=== PATIENT | male | born 1985 | race African-American/Black ===

== ENCOUNTER 2022-03-01 10:26 | Emergency (ER) | payer OTHER, SELFPAY ==
--- NOTE | ~2022-03-01 | XR_ITS ---
EXAMINATION: XR tibia fibula LT 2V INDICATION: Left ankle pain TECHNIQUE: Two views of the left tibia and fibula are obtained on three radiographs. COMPARISON: None available FINDINGS: Again seen is an acute, traumatic, closed, oblique fracture of the posterior aspect of the distal fibula extending below the level of the tibial plafond. No additional fracture is identified. Bone alignment at the knee is normal. There is lateral soft tissue swelling of ankle. IMPRESSION: 1. Oblique fracture of the posterior aspect of the distal fibula extending below the level of the tib ial plafond. No additional acute osseous abnormality identified. Reviewed, dictated and finalized at location A. IMPRESSION: 1. Oblique fracture of the posterior aspect of the distal fibula extending belo w the level of the tibial plafond. No additional acute osseous abnormality iden tified.
--- NOTE | ~2022-03-01 | XR_ITS ---
EXAMINATION: XR ankle LT min 3V DATE: 03/01/2022 10:55 INDICATION: Left ankle pain, initial encounter TECHNIQUE: Anteroposterior, lateral, mortise, and additional oblique view of the ankle were obtained. COMPARISON: None. FINDINGS: There is an acute, traumatic, closed, oblique fracture in the posterior aspect of the dista l fibula extending below the level of the tibial plafond. No additional fracture is identified. The d istal fracture fragment is posteriorly displaced approximately 4 mm. There is soft tissue swelling of ankle. IMPRESSION: 1. Acute oblique fracture of the posterior aspect of the distal fibula extending below the level of t he tibial plafond. Reviewed, dictated and finalized at location A. IMPRESSION: 1. Acute oblique fracture of the posterior aspect of the distal fibula extendin g below the level of the tibial plafond.
[2022-03-01 10:28] VITALS: BP 147/75; PULSE 103; RESP 14; TEMP 36.4; O2SAT 98
--- NOTE | 2022-03-01 11:26 | ED.LOWEXIN ---
HPI - Extremity Injury (Lower) General Chief Complaint: Extremity Injury, Lower Stated Complaint: left ankle injury Time Seen by Provider: 03/01/22 11:09 History of Present Illness HPI Narrative: Patient is a 37-year-old male here for evaluation of left ankle/lower leg pain and swelling. Patient states that he was playing with his nephew, when he accidentally tripped and fell, landing with his foot in inversion. He denies head injury or loss of consciousness in the accident. He has taken a few steps since the accident but notes it has been painful. Notes that his foot was out of place initially, he pulled out himself to bring it back into anatomic position. Denies any numbness, tingling. Has not taken any pain medicine yet. Related Data Allergies Allergy/AdvReac Type Severity Reaction Status Date / Time No Known Allergies Allergy Verified 03/01/22 10:27 Review of Systems Review of Systems: Gen: Denies fevers or chills Eyes: Denies eye pain or visual change ENT: Denies congestion Respiratory: Denies shortness of breath or cough CV: Denies chest pain or palpitations GI: Denies abdominal pain nausea, emesis or diarrhea : denies burning, urgency, frequency or hematuria Musculoskeletal: Denies back pain or muscle pain Neuro: Denies numbness, tingling, weakness or focal weakness Skin: Denies rash Except as documented, all other systems reviewed and negative Exam Narrative: Gen: Alert, oriented, no acute distress Eyes: EOMI, no icterus Pulm: Respirations even and unlabored, symmetric thorax expansion, no audible stridor or visible cyanosis CV: 2+ DP and PT pulses. GI: No distension, no voluntary/involuntary guarding Neuro: AOx4, moves all extremities without apparent difficulty or weakness, follows commands MSK: Patient has swelling and bruising over lateral aspect of left foot. He is tender to palpation over the distal and mid fibula. He is able to wiggle his toes. Sensation intact distal to area of pain. Compartments are soft. Skin: No jaundice, no visible bruising, rashes, lesions or wounds on exposed skin Psych: Normal mood/affect, insight/judgement good, adequate fund of knowledge, recent/remote memory intact Course Vital Signs Vital signs: Vital Signs Temperature 97.5 F L 03/01/22 10:28 Pulse Rate 103 H 03/01/22 10:28 Respiratory Rate 14 03/01/22 10:28 Blood Pressure 147/75 H 03/01/22 10:28 Pulse Oximetry 98 03/01/22 10:28 Oxygen Delivery Room Air 03/01/22 10:28 Temperature 97.5 F L 03/01/22 10:28 Pulse Rate 82 03/01/22 13:49 Respiratory Rate 18 03/01/22 13:49 Blood Pressure 133/75 03/01/22 13:49 Pulse Oximetry 100 03/01/22 13:49 Oxygen Delivery Room Air 03/01/22 10:28 MDM - Extremity Injury (Lower) MDM Narrative Medical decision making narrative: 37-year-old male here for evaluation of left foot pain after falling today. On exam, he is tender around his distal fibula with bruising. Compartments are soft. He has evidence of an oblique distal fibular fracture on x-ray. He is neurovascularly intact distally. He was put in a posterior short leg splint and told to follow up with orthopedics this following week. Was given return precautions and he voiced understanding. Discharge Plan Discharge Clinical Impression: Fracture of distal end of fibula Patient Disposition: Home, Self-Care Condition: Stable Instructions: Antibiotic Form, Ankle Fracture (ED), Splint Care (ED) Additional Instructions: You are found to have a fracture of your fibula bone. You are placed in a splint that will immobilize the fracture. Please wear the splint until you can follow-up with an orthopedist specialist and use the crutches. Take the pain medicine as prescribed. Return to the emergency department if you develop a fever or chills, if your pain is unmanageable. Prescriptions: New hydrocodone-acetaminophen 5-325 mg tablet 1 tablet PO Q6H PRN (Reason: pain) Qty: 10 0RF
[2022-03-01] MEDS: HYDROcodone/acetaminophen (*CRX) 5-325 MG TABLET 1 TAB PO (11:28)
[2022-03-01 13:49] VITALS: BP 133/75; PULSE 82; RESP 18; O2SAT 100
== END 2022-03-01 13:51 | disposition home or self-care (01) ==
PROVIDERS: Emergency Provider Emergency Medicine
DX: S82.832A Other fracture of upper and lower end of left fibula, initial encounter for closed fracture (principal); W01.0XXA Fall on same level from slipping, tripping and stumbling without subsequent striking against object, initial encounter; X50.9XXA Other and unspecified overexertion or strenuous movements or postures, initial encounter
CPT/HCPCS: 29515; 73590; 73610; 99284; A9270

== ENCOUNTER 2022-03-10 01:09 | Day surgery (SDC) | payer OTHER, SELFPAY ==
--- NOTE | 2022-03-06 14:44 | PC.NURSE ---
Report to the Outpatient Waiting Room, entrance under the green pavilion located off [facility], at time _1200 on date 03/10/22 . OR Time: _1400 . - You and your visitor will be asked to self-screen and do not enter if you have any COVID symptoms. - Only one visitor and NO children visitors are allowed at this time. - The patient visitor is requested to leave or wait in car when not with patient due to restrictions. - A mask is required within the hospital. Patients may have clear liquids (water, carbonated beverages, clear teas, apple juice) until 3 hours prior to surgery with a maximum of 20 ounces. - No food from midnight until time of surgery - Infants may have breast milk until 4 hours before surgery, infant formula 6 hours prior to surgery. - Children will be allowed to drink immediately following surgery. If applicable, please bring a bottle or sippy cup to assist with drinking. Juice, water, soda, and popsicles are readily available. For infants on formula, please bring formula the day of surgery. Pacifiers are allowed. Take the following medications with a SIP of water the morning of surgery: ___NONE Medications to discontinue per physician NONE Date to take last dose Please no make-up, nail american, hairspray, perfume, deodorant, or body powder the day of surgery. No jewelry (including any body piercings) or valuables the day of surgery, leave them at home. Please take a shower or bath the night before, or the morning of, surgery with an antibacterial soap. Wear comfortable, loose fitting clothing. Children are encouraged to wear pajamas. - Jewelry must be removed prior to entering the operating room. Rings and piercings that are not removed may be cut off. - The hospital will not accept responsibility for valuables. - Please leave all valuables, including medications, at home the day of surgery. If you are going home after surgery, a licensed solo truck driver must drive you home. - NO public transportation without another adult. - We recommend that an adult stay with you for 24 hours following discharge. - We also recommend that you do not drive, make important decision, drink alcoholic beverages, or take any drugs that were not prescribed by your health care provider for at least 24 hours after your discharge time. For Pediatric surgeries, we recommend two adults accompany the child home (only one inside the building at this time). Follow any additional instructions given to you from your surgeon. If you or anyone in your household have experienced Covid symptoms in the past week, please notify your surgeon or the nurse liaison at the phone number below for possible testing. Telephone instructions given to ___PATIENT and asked if any additional questions and then verbalized understanding. Patient advised to call surgeon office or pre surgery nurse liaison [phone] if any additional questions.
[2022-03-06 14:52] VITALS: BMI 26.6
[2022-03-10] VITALS (11 sets, daily range): BP systolic 125–172; BP diastolic 56–109; PULSE 79–105; RESP 12–20; TEMP 36.8–37.2; O2SAT 95–100
--- NOTE | ~2022-03-10 | XR_ITS ---
EXAMINATION: XR surgery orthopedic DATE: 03/10/2022 14:42 INDICATION: Left left ankle fracture TECHNIQUE: 3 fluoroscopic images of the left ankle were obtained during procedure performed by Dr. Joaquin avila. Radiologist was not present for the imaging or procedure. The amount of fluoroscopy time us ed during this procedure was 0.7 minutes. COMPARISON: Left ankle radiographs dated 03/01/2022 FINDINGS: Interval open reduction internal fixation of the previously seen lateral malleolar fracture with inte rfragmentary screw and lateral plate and screws. Additionally there is a metallic buttons at the tibi al side of a lucent syndesmotic wire fixation tract extending across the metaphyseal regions of the d istal fibula and tibia. Alignment appears near-anatomic. No other fractures identified. IMPRESSION: 1. Essentially anatomic alignment post open reduction internal fixation including syndesmotic wire fi xation of a lateral malleolar fracture of the left ankle. Reviewed, dictated and finalized at location A. IMPRESSION: 1. Essentially anatomic alignment post open reduction internal fixation includi ng syndesmotic wire fixation of a lateral malleolar fracture of the left ankle.
--- NOTE | 2022-03-10 09:08 | WPDHPUPDATE1 ---
History and Physical Update Update Date/Time: 03/10/22 09:08 History and Physical has been reviewed, including an updated exam of the patient. There are NO changes in the patient's condition. Risks, benefits, and alternatives have been discussed and questions answered. Patient agrees to proceed with procedure.
--- NOTE | 2022-03-10 12:28 | WPDANESEPPF ---
Anes - Initial Pre Proc Eval Procedure: Operation Date: 03/10/22 14:00 Proposed Procedures p Open Reduction Internal Fixation Left Ankle Fracture - Everardo Nieto MD Date/Time: 03/10/22 12:28 Surgeon: Everardo Nieto MD Pre Op Diagnosis: Lt Ankle Fx Patient Data Age: 37 Gender: M Height: 1.89 m Weight: 95.35 kg Allergies Allergy/AdvReac Type Severity Reaction Status Date / Time acetaminophen AdvReac Gastrointestinal Verified 03/06/22 14:36 Upset ibuprofen AdvReac Gastrointestinal Verified 03/06/22 14:35 Upset Home Medications Medication Instructions Recorded Confirmed Type hydrocodone 5 mg-acetaminophen 325 1 tablet PO Q6H PRN pain #10 tabs 03/01/22 03/06/22 Rx mg tablet Patient hx anesthesia problems: none Family hx anesthesia problems: none Results Review: All pre-operative results and documents have been reviewed as part of the pre-operative evaluation. [facility] Social History Social History Smoking packs per day: 0.5 Smoking cigarettes per day: 10.0 Years smoked: 0.5 Smoking pack-years: 0.25 Smoking status: Current every day smoker Tobacco type: cigarettes Alcohol intake: current Drinks per week: 3 Substance use: current Substance use type: marijuana Living arrangements: alone Spiritual care concerns: No Anes - Eval Final PreProcedure Day of Procedure 03/10/22 12:28 Patient weight: overweight Heart: regular rate and rhythm Lungs: clear to auscultation Airway: Mallampati scale class II Neurological: alert and oriented Last oral intake: >/= 8 hours ASA classification: II Emergent: no Anesthetic plan: proceed Anesthesia type and monitoring: general LMA and standard monitoring Results Review: All pre-operative results and documents have been reviewed as part of the pre-operative evaluation. Informed Consent: The patient's anesthetic plan and its attendant risks and benefits were discussed with the patient/family/POA. Questions were solicited and answers provided to the satisfaction of the patient/family/POA.
[2022-03-10] MEDS: LACTATED RINGERS 1,000 ML 30 ML IV CONT ×2 (12:35→15:15)
[2022-03-10] MEDS: ceFAZolin 2 GM/D5W 50 ML 2 GM/50 ML BAG IVPB (12:52)
--- NOTE | 2022-03-10 13:08 | SUR.PREOP ---
1215-UNABLE TO DO HAIR REMOVAL/SCRUB R/T PT DISCOMFORT.
[2022-03-10] MEDS: BUPIVACAINE/EPINEPHRINE 0.25% 50 ML VIAL 30 ML INFILTRATE (14:42)
[2022-03-10] MEDS: fentaNYL CITRATE INJ (*CRX) 100 MCG/2 ML VIAL 25 MCG IV PUSH ×6 (15:30→15:55)
--- NOTE | 2022-03-10 15:48 | SUR.PHASEI ---
Spoke with Kasandra at Dr. Nieto's office regarding patient's complaint of pain from splint/wrap. Dr. Nieto stated Splint is in perfect, give patient more pain medication. Will proceed as directed.
--- NOTE | 2022-03-10 15:54 | W.PM.PROC2 ---
Procedure Note - Detailed Date of Procedure 03/10/22 Pre-op Diagnosis 1. Left ankle lateral malleolus fracture. 2. Left ankle syndesmosis disruption Post-op Diagnosis Same Procedure Performed 1. ORIF left ankle with fixation of the lateral malleolus 2. ORIF distal tib-fib syndesmosis. Surgeon Everardo Nieto MD Anesthesia General Description of Procedure With a general anesthetic was administered. The limb was prepped and draped in the usual sterile fashion with a well-padded tourniquet high on the thigh. A bump was placed under the hip. The limb was exsanguinated and the tourniquet inflated to 300 millimeters of mercury during the procedure. A longitudinal incision was created at the distal fibula. Careful dissection was carried down to bone. Perineal nerve branches were protected, as able.. The fracture was carefully exposed. Callus and debris was irrigated from the wound. Reduction was made more difficult due to the instability of the fibula shaft and syndesmosis. A pointed reduction clamp was placed through a stab incision medially reducing the shaft of the fibula. This allowed for reduction of the fracture. The fracture was brought out to length. Reduction was accomplished with the reduction forceps. A single anterior to posterior cortical lag screw was placed. The anatomic lateral malleolus fixation plate was used. Slight contouring was required. Fixation was performed with a combination of proximal cortical screws and distal locking screws. Fluoroscopy was used throughout the procedure to confirm anatomic reduction and appropriate placement of the implants. Attention was turned to the syndesmosis. Through the plate the drill was taken across to the medial tibia. The tight rope device was deployed on the medial tibial cortex. Careful reduction and tightening of the tight rope was performed. Care was taken to not overtighten the syndesmosis. The tourniquet was released. Meticulous hemostasis was obtained. The wound was closed in layers with 2-0 Vicryl suture 3-0 Monocryl suture and neha. A sterile splint with padding was applied. The patient was extubated and brought to the recovery room in stable condition. There were no complications. Implants Arthrex anatomic distal fibular plate. Tight rope syndesmosis fixation device. Estimated Blood Loss 20 Tourniquet Time 60 Pathology None sent Complications No immediate complications Condition Stable Disposition PACU [facility] Billing Surgery - Charge Forward: Surgery Billing
[2022-03-10] MEDS: HYDROmorphone HCL INJ (*CRX) 1 MG/ML SYR IV PUSH ×2 (16:28→17:11)
[2022-03-10] MEDS: oxyCODONE HCL (*CRX) 5 MG TAB IR PO (17:01)
== END 2022-03-10 17:48 | disposition home or self-care (01) ==
PROVIDERS: Visit Provider Orthopaedic Surgery
PROC: (CPT 27792; principal; 2022-03-10 14:00)
DX: S82.62XA Displaced fracture of lateral malleolus of left fibula, initial encounter for closed fracture (principal); S93.432A Sprain of tibiofibular ligament of left ankle, initial encounter; X50.0XXA Overexertion from strenuous movement or load, initial encounter; F17.210 Nicotine dependence, cigarettes, uncomplicated; F12.90 Cannabis use, unspecified, uncomplicated
CPT/HCPCS: 27792; 27829; 99199; A9270; C1713; J0690; J1100; J1170; J2250; J2405; J2704; J3010; J3370; J7120